=== PATIENT | male | born 1985 ===

== ENCOUNTER 2022-08-12 15:56 | Emergency (ER) | payer SELFPAY ==
[~2022-08-12] VITALS: Ht 182.9 cm; Wt 70.0 kg
[2022-08-12 16:00] VITALS: BP 152/86
== END 2022-08-12 17:27 | disposition left against medical advice (07) ==
LOC: ER 15:56
DX: Z53.21 Procedure and treatment not carried out due to patient leaving prior to being seen by health care provider (principal)